=== PATIENT | female | born 1945 | race Caucasian/White ===

== ENCOUNTER 2020-07-22 15:49 | Outpatient (REF) | payer OTHER, MEDICARE, SELFPAY ==
--- NOTE | ~2020-07-22 | MM_ITS ---
EXAMINATION: MM SCREENING DIGITAL BREAST TOMOSYNTHESIS, BILATERAL CLINICAL INFORMATION: Screening. Asymptomatic. The lifetime risk of breast cancer based on the Tyrer-Cuzick Model is 5%. COMPARISON: Mammography: 06/14/2018, 06/04/2017, 05/21/2016 TECHNIQUE: Digital breast tomosynthesis is performed in both the craniocaudal and mediolateral oblique views along with computer-aided detection (CAD). Synthesized 2D images are generated from the tomosynthesis. FINDINGS: The breasts are heterogeneously dense, which may obscure small masses (ACR BI-RADS breast composition Category c). Breast tissue composition borders on average fibroglandular. Parenchymal pattern is similar to prior studies. There is no developing density or interval mass or architectural abnormality. Again, there are regional ductal secretory calcifications central right breast and other scattered benign round and some coarse calcifications as before. The axilla and skin contours are unremarkable. MM/MM tomosynthesis screening BI IMPRESSION: No significant changes from prior exams. ASSESSMENT: BI-RADS 2: Benign RECOMMENDATION: Routine annual mammography screening. This patient's information was entered into a reminder system with a target due date for their next mammogram.
== END 2020-07-22 15:50 | disposition home or self-care (01) ==
LOC: HO.MAMMO 15:49
PROVIDERS: Visit Provider Internal Medicine
DX: Z12.31 Encounter for screening mammogram for malignant neoplasm of breast (principal)
CPT/HCPCS: 77063; 77067

== ENCOUNTER → 2020-12-31 11:05 | Outpatient (BNVA) | payer OTHER, MEDICARE, SELFPAY | PROVIDERS: PCP Internal Medicine; Visit Provider Nurse Practitioner Family | DX: Z01.811 Encounter for preprocedural respiratory examination (principal); Z12.11 Encounter for screening for malignant neoplasm of colon; K59.01 Slow transit constipation; E11.9 Type 2 diabetes mellitus without complications | CPT/HCPCS: 99202 ==

== ENCOUNTER 2021-03-15 06:51 | Emergency (ER) | payer OTHER, MEDICARE, SELFPAY ==
[2021-03-15 06:59] VITALS: BP 154/66; PULSE 92; RESP 20; TEMP 36.7; O2SAT 96; BMI 21.2
[2021-03-15] MEDS: dexAMETHasone sod phosphate 10 MG/ML VIAL IVPUSH (07:11)
[2021-03-15] MEDS: Famotidine/PF 20 MG/2 ML VIAL IVPUSH (07:11)
[2021-03-15] MEDS: 0.9 % Sodium Chloride 1,000 ML 999 ML IVCONT (07:11)
[2021-03-15 07:17] VITALS: BP 156/63; PULSE 84; RESP 14; O2SAT 96
[2021-03-15 07:26] LABS: INTERNATIONAL NORM RATIO 1.1 (0.9-1.1); Prothrombin Time 12.3 SEC (9.9-13.0)
[2021-03-15 07:29] LABS: Partial Thromboplastin Time 37.5 SEC (24.1-38.0)
[2021-03-15 07:31] LABS: Basophils Absolute Auto 0.1 X10*3/uL (0.0-0.2); Basophils Percent Auto 0.5 % (0-2); Eosinophils Absolute Auto 0.4 X10*3/uL (0.0-0.4); Eosinophils Percent Auto 3.5 % (0-4); Hematocrit 41.6 % (37.0-47.0); Hemoglobin 12.7 g/dl (12.0-16.0); Imm Gran Abs Auto 0.04 X10*3/uL (0.00-0.03); Imm Gran Pct Auto 0.4 % (0.0-0.4); Lymphocytes Percent Auto 18.8 % (20-40); MANUAL DIFF FLAG SCAN; Mean Corpuscular HGB Conc 30.5 g/dl (31.0-35.0); Mean Corpuscular Hemoglobin 28.3 pg (27.0-33.0); Mean Corpuscular Volume 92.7 fL (80.0-98.0); Mean Platelet Volume 10.1 fL (9.4-12.3); Monocytes Absolute Auto 1.1 X10*3/uL (0.1-1.2); Monocytes Percent Auto 10.7 % (2-11); Neutrophils Absolute Auto 7.1 x10*3/uL (2.0-8.3); Neutrophils Percent Auto 66.1 % (45-73); PLT CLUMP 1; Red Blood Count 4.49 X10*6/uL (4.20-5.50); Red Cell Distribution Width 15.6 % (11.0-16.0); SCAN SMEAR FLAG 1
--- NOTE | 2021-03-15 07:32 | ED_ITS ---
HPI - General Adult General Chief complaint: Allergic Reaction Stated complaint: allergic reaction Time Seen by Provider: 03/15/21 06:56 Source: patient Mode of arrival: ambulatory Limitations: no limitations History of Present Illness HPI narrative: this is a 75 years old patient presented to the ED with complaining of swelling of the tongue, she states it she woke up with the tongue swelling, she takes lisinopril. She denies any skin rash wheezing or shortness of breath. Onset (ago): hour(s) (2) Radiation: non-radiation Severity: moderate Quality: constant Pain Consistency: constant Relieving factors: none Exacerbating factors: none Associated symptoms: denies other symptoms Related Data Home Medications Medication Instructions Recorded Confirmed albuterol sulfate 90 2 puff INHALATION Q6H PRN 12/31/20 03/15/21 mcg/actuation aerosol inhaler clopidogrel 75 mg tablet 75 mg PO DAILY 12/31/20 03/15/21 (Plavix) fenofibrate 160 mg tablet 160 mg PO DAILY 12/31/20 03/15/21 ferrous sulfate 325 mg (65 mg 325 mg PO DAILY 12/31/20 03/15/21 iron) tablet gabapentin 100 mg capsule 200 mg PO TID 12/31/20 03/15/21 lisinopril 20 mg tablet 20 mg PO BID 12/31/20 03/15/21 metformin 500 mg tablet 1,000 mg PO BID 12/31/20 03/15/21 omeprazole 20 mg 20 mg PO DAILY 12/31/20 03/15/21 capsule,delayed release rosuvastatin 20 mg tablet 20 mg PO DAILY 12/31/20 03/15/21 (Crestor) sitagliptin 100 mg tablet 100 mg PO DAILY 12/31/20 03/15/21 (Januvia) amlodipine 10 mg tablet 1 tab PO DAILY 03/15/21 03/15/21 clonidine HCl 0.1 mg tablet 1 tab PO BID 03/15/21 03/15/21 fluticasone fur. 100 1 puff INHALATION DAILY 03/15/21 03/15/21 mcg-umeclid 62.5 mcg-vilant 25 mcg inhalat.powder (Trelegy Ellipta) glipizide 5 mg tablet, 1 tab PO DAILY 03/15/21 03/15/21 extended release 24 hr Previous Rx's Medication Instructions Recorded prednisone 20 mg tablet 60 mg PO DAILY 3 Days #9 tab 03/15/21 Allergies Allergy/AdvReac Type Severity Reaction Status Date / Time No Known Allergies Allergy Verified 12/31/20 11:33 Review of Systems Verdana 4l Review of Systems: Yes all other systems are reviewed and Verdana 4d are negative Verdana 4l Constitutional: Verdana 4d Constitutional: Verdana 4d Verdana 4d Reports no additional constitutional complaints Verdana 4l Eyes: Verdana 4d Verdana 4d Eyes: Verdana 4d Reports no additional eye complaints Verdana 4l ENT: Verdana 4d Denies dysphagia Verdana 4d Comments: Verdana 4d Verdana 4d tongue swelling Verdana 4d Verdana 4l Cardiovascular: Verdana 4d Cardiovascular: Verdana 4d Verdana 4d Reports no additional cardiovascular complaints Verdana 4l Respiratory: Verdana 4d Verdana 4d Respiratory: Verdana 4d Reports no additional respiratory complaints Verdana 4l Gastrointestinal: Verdana 4d Gastrointestinal: Verdana 4d Verdana 4d Denies dysphagia Verdana 4l Genitourinary: Verdana 4d Verdana 4d Genitourinary: Verdana 4d Reports no additional female genitourinary complaints PMFSH Past Medical History Medical History Diabetes mellitus HTN (hypertension) Hypercholesteremia Surgical History History of esophagogastroduodenoscopy (EGD) History of lumbar laminectomy History of lumpectomy Hx of colonoscopy Family History Family History Sister Colon cancer Father Asthma Lung cancer Mother Stroke Brother Colon cancer Social History Social History Alcohol intake: never Patient Tobacco Use Status: Current everyday Tobacco user Tobacco use type: Cigarette Use of substances other than those prescribed or required for medical reasons: No Advance Directives: No Advance Directives Information Provided: Yes Physical Exam Verdana 4l Vital Signs: Verdana 4d Verdana 4d Vital Signs: Verdana 4d Verdana 4Bd Last Vital Signs Verdana 4d 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 Temp 98.0 F 03/15/21 15:11 Factory Maintenance Technician New 4d Pulse 90 03/15/21 15:11 Factory Maintenance Technician New 4d Resp 16 03/15/21 15:11 BP 155/65 H 03/15/21 15:11 Pulse Ox 95 03/15/21 15:11 BMI result Body Mass Index 21.2 Const: General: cooperative, alert and awake Orientation/consciousness: oriented to person, oriented to place, oriented to time and patient oriented x3 HENMT: Other: Examination the head eyes ears nose and throat is remarkable for swelling of the tongue Face and sinus: Yes other (tongue swelling) Neck: Neck: Yes normal visual inspection Chest: Chest palpation & inspection: normal inspection of the chest Resp: Effort & Inspection: normal respiratory effort and able to speak in complete sentences Auscultation: clear to auscultation bilaterally Cardio: Jugular venous distension: no JVD Rate: regular rate Rhythm: regular rhythm GI: Inspection: Yes normal to inspection Palpation (GI): Soft to palpation, not firm and nontender Skin: General skin exam: no rashes or lesions noted, elasticity normal and turgor normal Lesions: no lesions Rashes: no rashes Neuro: General: oriented to person, oriented to place, oriented to time and patient oriented x3 Course Reevaluation(s) Reevaluation #1: no worse Reevaluation #2: AFTER MORE THAN 4 HOUR OF OBSERVATION CLINICAL PICTURE REMAIN UNCHANGED NO WORSENING OF THE SWELLING, NO STRIDOR . AT THIS POINT I THINK IT IS VERY REASONABLE TO ASMIT THE PATIENT TO MONITORED BED Reevaluation #3: I booked the pt to tele ,Dr Ramirez went to see the pt but she refused the admission,she wants to go home,states she feels better now Additional Reevaluation(s): Doing better wants to be d/c home,refuses admission,she was told to discontinue lisinopril Medical Decision Making MDM Narrative Medical decision making narrative: briefly this is a 75 years old presented with angioedema, we going to give Decadron, Benadryl, Pepcid. I anticipate a prolonged period of observation in the emergency department and possible admission. At this time in airways patent will monitor closely Lab Data Result diagrams: 03/15/21 07:14 03/15/21 07:14 Labs: Lab Results 02/06/2903/15/21 03/15/21 Range/Units 07:14 07:14 07:14 WBC 10.7 (4.8-10.8) X10*3/uL RBC 4.49 (4.20-5.50) X10*6/uL Hgb 12.7 (12.0-16.0) g/dl Hct 41.6 (37.0-47.0) % MCV 92.7 (80.0-98.0) fL MCH 28.3 (27.0-33.0) pg MCHC 30.5 L (31.0-35.0) g/dl RDW 15.6 (11.0-16.0) % Plt Count 372 (160-400) X10*3/uL MPV 10.1 (9.4-12.3) fL Immature Gran % (Auto) 0.4 (0.0-0.4) % Neut % (Auto) 66.1 (45-73) % Lymph % (Auto) 18.8 L (20-40) % Boone % (Auto) 10.7 (2-11) % Eos % (Auto) 3.5 (0-4) % Baso % (Auto) 0.5 (0-2) % Lymph # (Auto) 2.0 (1.2-4.9) X10*3/uL Boone # (Auto) 1.1 (0.1-1.2) X10*3/uL Eos # (Auto) 0.4 (0.0-0.4) X10*3/uL Baso # (Auto) 0.1 (0.0-0.2) X10*3/uL Abs Immat Gran (auto) 0.04 H (0.00-0.03) X10*3/uL Absolute Neuts (auto) 7.1 (2.0-8.3) x10*3/uL Absolute Nucleated RBC 0.000 (0.0-0.012) X10*3/uL Nucleated RBC % (auto) 0.0 (0.0-0.2) /100WBC Smear Tech's Comments VERIFIED PT 12.3 (9.9-13.0) SEC INR 1.1 (0.9-1.1) APTT 37.5 (24.1-38.0) SEC Sodium 142 (135-145) mmol/L Potassium 4.4 (3.3-5.1) mmol/L Chloride 108 (96-108) mmol/L Carbon Dioxide 24 (22-29) mmol/L Anion Gap 14 (12-20) BUN 22 H (9-16) mg/dL Creatinine 1.09 (0.5-1.4) mg/dL Estim Creat Clear Calc 30.3 Estimated GFR 49 Random Glucose 102 (60-115) mg/dL Calcium 10.1 (8.4-10.2) mg/dL Total Bilirubin 0.5 (0.0-1.0) mg/dL AST 27 (5-31) U/L ALT 18 (0-31) U/L Alkaline Phosphatase 73 (39-117) U/L Total Protein 7.6 (6.5-8.0) g/dL Albumin 4.2 (3.5-5.0) g/dL COVID-19 (AAKASH) (Negative) COVID-19 Clin Com 03/15/21 Range/Units 13:59 WBC (4.8-10.8) X10*3/uL RBC (4.20-5.50) X10*6/uL Hgb (12.0-16.0) g/dl Hct (37.0-47.0) % MCV (80.0-98.0) fL MCH (27.0-33.0) pg MCHC (31.0-35.0) g/dl RDW (11.0-16.0) % Plt Count (160-400) X10*3/uL MPV (9.4-12.3) fL Immature Gran % (Auto) (0.0-0.4) % Neut % (Auto) (45-73) % Lymph % (Auto) (20-40) % Boone % (Auto) (2-11) % Eos % (Auto) (0-4) % Baso % (Auto) (0-2) % Lymph # (Auto) (1.2-4.9) X10*3/uL Boone # (Auto) (0.1-1.2) X10*3/uL Eos # (Auto) (0.0-0.4) X10*3/uL Baso # (Auto) (0.0-0.2) X10*3/uL Abs Immat Gran (auto) (0.00-0.03) X10*3/uL Absolute Neuts (auto) (2.0-8.3) x10*3/uL Absolute Nucleated RBC (0.0-0.012) X10*3/uL Nucleated RBC % (auto) (0.0-0.2) /100WBC Smear Tech's Comments PT (9.9-13.0) SEC INR (0.9-1.1) APTT (24.1-38.0) SEC Sodium (135-145) mmol/L Potassium (3.3-5.1) mmol/L Chloride (96-108) mmol/L Carbon Dioxide (22-29) mmol/L Anion Gap (12-20) BUN (9-16) mg/dL Creatinine (0.5-1.4) mg/dL Estim Creat Clear Calc Estimated GFR Random Glucose (60-115) mg/dL Calcium (8.4-10.2) mg/dL Total Bilirubin (0.0-1.0) mg/dL AST (5-31) U/L ALT (0-31) U/L Alkaline Phosphatase (39-117) U/L Total Protein (6.5-8.0) g/dL Albumin (3.5-5.0) g/dL COVID-19 (AAKASH) Negative (Negative) COVID-19 Clin Com See Note Critical Care Time Critical Care Time Critical Care Time: Yes Total Critical Care Time: 60 Attestation: IV decadron/IV benadryl/possible aiway obstruction Discharge Plan Discharge Clinical Impression: Acquired angioedema Patient Disposition: Home, Self-Care Instructions: Angioedema (ED) Additional Instructions: Stop lisinopril,return if worse Prescriptions: New prednisone 20 mg tablet 60 mg PO DAILY 3 Days Qty: 9 0RF No Action clonidine HCl 0.1 mg tablet 1 tab PO BID 0RF amlodipine 10 mg tablet 1 tab PO DAILY 0RF Trelegy Ellipta 100-62.5-25 mcg blister with device 1 puff inhalation DAILY 0RF glipizide 5 mg tablet extended release 24 hr 1 tab PO DAILY 0RF omeprazole 20 mg capsule,delayed release(DR/EC) 20 mg PO DAILY 0RF lisinopril 20 mg tablet 20 mg PO BID 0RF gabapentin 100 mg capsule 200 mg PO TID 0RF albuterol sulfate 90 mcg/actuation HFA aerosol inhaler 2 puff inhalation Q6H PRN (Reason: Shortness Of Breath) 0RF clopidogrel [Plavix] 75 mg tablet 75 mg PO DAILY 0RF fenofibrate 160 mg tablet 160 mg PO DAILY 0RF rosuvastatin [Crestor] 20 mg tablet 20 mg PO DAILY 0RF ferrous sulfate 325 mg (65 mg iron) tablet 325 mg PO DAILY 0RF Januvia 100 mg tablet 100 mg PO DAILY 0RF metformin 500 mg tablet 1,000 mg PO BID 0RF Interventions: ED Discharge Assessment Last Done: 03/15/21 15:20 Print Language: Senegalese
[2021-03-15 07:34] LABS: Platelet Count 372 X10*3/uL (160-400); White Blood Count 10.7 X10*3/uL (4.8-10.8)
[2021-03-15 07:40] LABS: Alanine Aminotransferase 18 U/L (0-31); Albumin Level 4.2 g/dL (3.5-5.0); Alkaline Phosphatase 73 U/L (39-117); Anion Gap 14 (12-20); Aspartate Amino Transferase 27 U/L (5-31); Bilirubin Total 0.5 mg/dL (0.0-1.0); Blood Urea Nitrogen 22 mg/dL (9-16); Calcium 10.1 mg/dL (8.4-10.2); Carbon Dioxide 24 mmol/L (22-29); Chloride 108 mmol/L (96-108); Creatinine Clr Calc Pharmacy 30.3; Estimated Glomerular Filt Rate 49; Glucose Random 102 mg/dL (60-115); Potassium 4.4 mmol/L (3.3-5.1); Sodium 142 mmol/L (135-145); Total Protein 7.6 g/dL (6.5-8.0)
[2021-03-15 07:51] LABS: SLIDE REVIEW VERIFIED
[2021-03-15] MEDS: diphenhydrAMINE HCL 50 MG/ML VIAL 25 MG IVPUSH (08:05)
[2021-03-15 10:00] VITALS: BP 136/64; PULSE 87; RESP 15; O2SAT 94
--- NOTE | 2021-03-15 13:09 | PHA.MEDREC ---
Pharmacy Consult ? Medication Reconciliation Pharmacy has completed the medication reconciliation. Pt stated that she was prescribed HCTZ 12.5mg QD but has not started taking it yet. Tanya Hawley, JohnnieD
[2021-03-15 14:23] LABS: COVID-19 Test Negative (Negative)
[2021-03-15 15:11] VITALS: BP 155/65; PULSE 90; RESP 16; TEMP 36.7; O2SAT 95
== END 2021-03-15 15:20 | disposition home or self-care (01) ==
PROVIDERS: Emergency Provider Emergency Medicine; PCP Internal Medicine
DX: T78.3XXA Angioneurotic edema, initial encounter (principal); T46.4X5A Adverse effect of angiotensin-converting-enzyme inhibitors, initial encounter; Y92.019 Unspecified place in single-family (private) house as the place of occurrence of the external cause; Z20.822 Contact with and (suspected) exposure to COVID-19; E11.9 Type 2 diabetes mellitus without complications; I10 Essential (primary) hypertension; E78.5 Hyperlipidemia, unspecified; F17.200 Nicotine dependence, unspecified, uncomplicated; Z79.02 Long term (current) use of antithrombotics/antiplatelets
CPT/HCPCS: 36415; 80053; 85025; 85610; 85730; 87635; 96361; 96365; 96375; 99284; 99291; J1100; J1200

== ENCOUNTER → 2021-04-09 13:48 | Outpatient (BNVA) | payer OTHER, MEDICARE, SELFPAY | PROVIDERS: PCP Internal Medicine; Referring Provider Internal Medicine; Visit Provider Nurse Practitioner Family | DX: Z12.11 Encounter for screening for malignant neoplasm of colon (principal); K59.01 Slow transit constipation | CPT/HCPCS: 99212 ==

== ENCOUNTER → 2021-04-14 15:09 | Outpatient (BNVA) | payer OTHER, MEDICARE, SELFPAY | PROVIDERS: PCP Internal Medicine; Referring Provider Internal Medicine; Visit Provider Internal Medicine Cardiovascular Disease | DX: J44.9 Chronic obstructive pulmonary disease, unspecified (principal); R06.00 Dyspnea, unspecified | CPT/HCPCS: 93005; 99202 ==

== ENCOUNTER → 2021-04-25 11:12 | Outpatient (REF) | payer MEDICARE, SELFPAY ==
--- NOTE | 2021-04-25 11:16 | CA_ITS ---
Transthoracic Echocardiogram Patient (Last, First, Middle): Kae Vizcarra, Gender: Female Date of : 1945 Age: 75 Procedure Date: 04/25/2021 Procedure Type: Transthoracic Echocardiogram Location: OP Height: 149.86 cm Weight: 45.36 kg BSA: 1.37 m2 Heart Rate: bpm BP: 140 / 80 mmHg Roll Grinder: KEVEN Kennedy MD: Vikram Murphy MD Symptoms: R06.00 - Dyspnea, unspecified Study Quality: Fair ECG Rhythm: Sinus Conclusions: - The left ventricular systolic function is normal. The calculated ejection fraction is 59% by biplane method. - There is mild calcification of the aortic valve. - There is moderate mitral annular calcification. Findings Left Ventricle Normal left ventricular cavity size. There is mildly increased left ventricular wall thickness. The left ventricular systolic function is normal. The calculated ejection fraction is 59% by biplane method. There is no evidence of regional wall motion abnormalities. E/E prime ratio is >15, consistent with elevated filling pressures. Evidence suggests grade I (mild) diastolic dysfunction. Right Ventricle Normal right ventricular cavity size and systolic function. Atria Both atria are normal in size. Aortic Valve There is a normal trileaflet aortic valve. There is mild calcification of the aortic valve. There is no aortic valve stenosis. There is no aortic valve regurgitation. Mitral Valve There is moderate mitral annular calcification. There is trace mitral valve regurgitation. There is no mitral valve stenosis. Pulmonic Valve The pulmonic valve was not well visualized. Tricuspid Valve Normal tricuspid valve structure. There is trace tricuspid valve regurgitation. The pulmonary artery systolic pressure is normal. Great Vessels The aortic annulus, sinuses of valsalva, and asc aorta are normal in size. Venous The inferior vena cava is normal in size and collapses greater than 50% with inspiration. Pericardium/Pleural There is a trivial pericardial effusion. Prior Study Comparison No prior study available for comparison. Measurements 2D Linear Measurements IVSd: 1.16 0.6-0.9/0.6-1.0 cm LVIDd: 3.76 3.9-5.3/4.2-5.9 cm LVIDd Index: 2.74 2.4-3.2/2.2-3.1 cm/m2 LVIDs: 2.69 2.0-3.6 cm LVPWd: 1.14 0.7-1.1 cm LA Diam: 3.20 2.7-3.8/3.0-4.0 cm LAIDs Index: 2.34 1.5-2.3 cm/m2 LV Mass: 176.16 67-162/88-224 g LV Mass Index: 128.59 43-95/49-115 g/m2 LVOT Diam: 2.00 3.0+(-)1.3 cm 2D Systolic Function EF 4C: 55.90 >55% EF 2C: 62.10 >55% EF BiP: 58.80 >55% Mitral Valve MV Pk E: 0.86 MV PK A: 1.41 MV Decel Time: 214.00 E/A: 0.60 E'Lateral: 2.83 E'Medial: 3.37 E/E' Med: 25.40 E/E' Lat: 30.30 PHT: 63.00 MVA PHT: 3.49 Decel Mchenry: 4.01 Aortic Valve AoV Pk Ramírez: 1.49 AoV Mn Ramírez: 1.00 AoV VTI: 0.23 AoV Pk Grad: 9.00 Aov Mn Grad: 5.00 RAMEZ Cont.VTI: 2.14 LVOT LVOT Pk Ramírez: 1.21 LVOT Mn Ramírez: 0.66 LVOT VTI: 0.16 LVOT Pk Grad: 6.00 LVOT Mn Grad: 2.00 LVOT Diam: 2.00 LVOT Area: 3.14 Diastolic Function MV Pk E: 0.86 MV Pk A: 1.41 E/A: 0.60 E'Medial: 3.37 E/E' Med: 25.40 E' Laterial: 2.83 E/E' Lat: 30.30 Right Ventricle TAPSE (mm): 19.30 TVS' Ramírez: 14.00 Tricuspid Valve TR Pk Ramírez: 2.01 TR Pk Grad: 16.00 RA Press: 3.00 RVSP: 19.00 Great Vessels Aorta Sinus of Valsalva: 2.96 2.0-3.5 cm Ao Asc: 2.90 2.1-3.4 cm Ao Arch: 2.50 Updated in Other Vendor System with Status of Final Osvaldo Suazo MD electronically signed on 04/26/2021 12:58:35 PM with status of Final
== END ==
LOC: HO.CARD 11:12
PROVIDERS: Visit Provider Internal Medicine Cardiovascular Disease
DX: R06.00 Dyspnea, unspecified (principal)
CPT/HCPCS: 93306

== ENCOUNTER 2021-07-07 08:20 | Observation (INO) | payer MEDICARE, OTHER, SELFPAY ==
--- NOTE | ~2021-07-07 | CT_ITS ---
EXAMINATION: CT HEAD WITHOUT CONTRAST CLINICAL INFORMATION: Weakness. COMPARISON: None TECHNIQUE: Contiguous axial imaging was performed from the skull base to vertex without intravenous administration of contrast. This CT examination was performed using dose optimization techniques as appropriate, variously including the following: *Automated exposure control *Adjustment of mA and/or kV according to patient size (this includes techniques or standardized protocols for targeted exams where dose is matched to indication/reason for exam; i.e. extremities or head) *Use of iterative reconstruction technique DLP: 800 mGy-cm FINDINGS: The ventricles and sulci are enlarged consistent with atrophy. No visualized masses or midline shift are seen. There is no intra-axial or extra-axial hemorrhage. There are no fluid collections. Decreased attenuation is seen in the periventricular white matter compatible with chronic small vessel ischemic disease. The calvin-white discrimination is preserved. The included paranasal sinuses and mastoid air cells are well aerated. The calvarium is intact. CT/CT head/brain wo con IMPRESSION: No intracranial hemorrhage or mass effect. Generalized atrophy and chronic small vessel white matter ischemic changes.
--- NOTE | ~2021-07-07 | CT_ITS ---
EXAMINATION: CT CHEST WITHOUT CONTRAST CLINICAL INFORMATION: Weakness. Abnormal chest radiograph. COMPARISON: Chest radiograph done earlier the same day. TECHNIQUE: Multidetector volumetric CT imaging of the chest was done. Axial MIP volume rendering provided. Sagittal and coronal reformatted images were obtained. This CT examination was performed using dose optimization techniques as appropriate, variously including the following: *Automated exposure control *Adjustment of mA and/or kV according to patient size (this includes techniques or standardized protocols for targeted exams where dose is matched to indication/reason for exam; i.e. extremities or head) *Use of iterative reconstruction technique DLP: 800 mGy-cm FINDINGS: TAILER OUT: Redemonstration of left chest wall opacification and leftward mediastinal shift. LUNGS/PLEURA: [id number] left-sided pleural effusion with complete collapse of the left lung. Tiny, insignificant foci of aeration posteriorly within the left lung. There is abrupt cutoff of the left mainstem bronchus which could indicate an obstructing lesion. Evaluation is somewhat limited without IV contrast. Bronchoscopy could help further evaluate in the appropriate clinical setting. Trace right basilar pleural thickening. No airspace consolidation. No right-sided pleural effusion or pneumothorax. Mild right-sided emphysematous change. No pneumothorax. MEDIASTINUM: Leftward mediastinal shift is redemonstrated. Mild cardiomegaly. Trace pericardial effusion. No thoracic aortic dilatation. Scattered atherosclerotic calcifications. No significant superior mediastinal or hilar lymphadenopathy. AXILLA: No lymphadenopathy. UPPER ABDOMEN: Simple left upper pole renal cyst. Findings are not clinically significant, and followup imaging is recommended. Partially visualized cholelithiasis. OSSEOUS STRUCTURES: No acute osseous abnormality. CT/CT chest wo con IMPRESSION: 1. [id number] left-sided pleural effusion with complete collapse of the left lung. Abrupt cutoff of the left mainstem bronchus which could indicate an obstructing lesion. Evaluation is somewhat limited without contrast, and bronchoscopy could help further evaluate in the appropriate clinical setting. 2. Trace right-sided basilar pleural thickening. No right-sided airspace consolidation. Mild emphysematous changes. 3. Leftward mediastinal shift with mild cardiomegaly and a trace pericardial effusion. Fleischner guidelines were followed.
--- NOTE | ~2021-07-07 | XR_ITS ---
EXAMINATION: XR CHEST CLINICAL INFORMATION: Weakness. COMPARISON: None TECHNIQUE: Frontal view of the chest was obtained. FINDINGS: Complete opacification of the left lung with leftward mediastinal shift, possibly indicating postobstructive atelectasis with volume loss. The right lung is clear. No right-sided pleural effusion or pneumothorax. XR/XR chest 1V IMPRESSION: Complete opacification of the left lung with leftward mediastinal shift which could indicate postobstructive atelectasis and volume loss.
--- NOTE | 2021-07-07 08:23 | ECG_ITS ---
Test Reason : ABNORMAL LABS Blood Pressure : / mmHG Vent. Rate : 084 BPM Atrial Rate : 084 BPM P-R Int : 156 ms QRS Dur : 088 ms QT Int : 380 ms P-R-T Axes : 082 073 110 degrees QTc Int : 449 ms Normal sinus rhythm Minimal voltage criteria for LVH, may be normal variant ( Sokolow-Mauro ) Septal infarct (cited on or before 20-JAN-2005) T wave abnormality, consider anterior ischemia Abnormal ECG When compared with ECG of 26-JAN-2005 07:49, RSR' pattern in V1 is no longer Present T wave inversion now evident in Anterior leads Referred By: Ifeoma Hinds Electronically Signed By:GLADYS WHITFIELD MD
[2021-07-07 08:30] VITALS: BP 150/108; BP 179/78; PULSE 80; PULSE 89; RESP 18; TEMP 36.8; O2SAT 95; BMI 14.1
--- NOTE | 2021-07-07 08:34 | ED_ITS ---
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 who recently was seen by Cardiology and had an echocardiogram on 04/25/2021 which revealed an ejection fracture of 59% with mild increased left ventricular wall thickness, normal right ventricle, normal atria, mild calcification of aortic valve otherwise no other abnormalities, mitral valve calcification and regurge, and tricuspid valve regurg otherwise no other abnormalities who was recently diagnosed with metastatic lung cancer approximately 1 month ago not on chemo or radiation due to stage IV who son told EMS that she was diagnosed with having a silent AK last month by cardiology p resenting to the ED via EMS after her son found her weak gurgling her speech therefore he called EMS and when EMS arrived they realize her blood glucose level was 40 and they started an IV line and placed her on D10 and her blood sugar on arrival at this time is 202. On arrival patient is alert and oriented x3. Moving all extremities. No focal neuro deficits are noted. Reports that she ate dinner last night and ate some ice cream right after dinner. She reports that she did not take any medications this morning. She reports her blood sugar has never gone low like this before. She denies any complaints or concerns at this time. She reports she feels completely normal at this time. 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 per EMS/family) Duration: now resolved Location: generalized Migration: none Relieving factors: none Exacerbating factors: none Associated symptoms: denies other symptoms Related Data Home Medications Medication Instructions Recorded Confirmed albuterol sulfate 90 mcg/actuation 2 puff INHALATION Q6H PRN 12/31/20 07/07/21 aerosol inhaler clopidogrel 75 mg tablet (Plavix) 75 mg PO DAILY 12/31/20 07/07/21 fenofibrate 160 mg tablet 160 mg PO DAILY 12/31/20 07/07/21 ferrous sulfate 325 mg (65 mg 325 mg PO DAILY 12/31/20 07/07/21 iron) tablet gabapentin 100 mg capsule 200 mg PO BID 12/31/20 07/07/21 metformin 500 mg tablet 1,000 mg PO BID 12/31/20 07/07/21 omeprazole 20 mg capsule,delayed 20 mg PO DAILY 12/31/20 07/07/21 release rosuvastatin 20 mg tablet (Crestor) 20 mg PO DAILY 12/31/20 07/07/21 sitagliptin 100 mg tablet (Januvia) 100 mg PO DAILY 12/31/20 07/07/21 clonidine HCl 0.1 mg tablet 1 tab PO BID 03/15/21 07/07/21 fluticasone fur. 100 mcg-umeclid 1 puff INHALATION DAILY 03/15/21 07/07/21 62.5 mcg-vilant 25 mcg inhalat.powder (Trelegy Ellipta) glipizide 5 mg tablet, extended 1 tab PO DAILY 03/15/21 07/07/21 release 24 hr epinephrine 0.3 mg/0.3 mL 0.3 mg IM Q5M PRN 04/09/21 07/07/21 injection, auto-injector amlodipine 10 mg tablet 10 mg PO DAILY 04/14/21 07/07/21 Allergies Allergy/AdvReac Type Severity Reaction Status Date / Time lisinopril Allergy Severe TONGUE Verified 04/14/21 15:18 SWELLING Review of Systems Review of Systems: Constitutional : No Fever, No Chills, No Night Sweats, No Fatigue, No Malaise ENT/Mouth : No Ear Pain, No Nasal Congestion, No Sinus Pain, No sore throat, No Rhinorrhea Eyes: No Eye Pain, No Swelling, No Redness, No Foreign Body, No Discharge, No Vision Changes Cardiovascular : No Chest Pain, No SOB, No Dyspnea on Exertion, No Orthopnea, No Palpitations Respiratory : No Cough, No Sputum, No Wheezing, No Dyspnea Gastrointestinal : No Nausea, No Vomiting, No Diarrhea, No Constipation, No abdominal Pain, No Hematochezia, No Melena Genitourinary : No Dysuria, No Urinary Frequency, No Urinary Incontinence, No Urgency, No Flank Pain Musculoskeletal : No joint pain, No Myalgias Skin : No lacerations Neuro : + general weakness which has now resolved, No Focal weakness, No Numbness, No Paresthesias, No Loss of Consciousness, No Dizziness, No Headache Yes all other systems are reviewed and are negative [facility] Past Medical History Attestation statement: The following information was validated with the patient. Medical History Diabetes mellitus HTN (hypertension) Hypercholesteremia Squamous cell carcinoma in situ of skin of forearm Surgical History History of esophagogastroduodenoscopy (EGD) History of lumbar laminectomy History of lumpectomy Hx of colonoscopy Family History Family History Sister Colon cancer Father Asthma Lung cancer Mother Stroke Brother Colon cancer Social History Social History Alcohol intake: never Patient Tobacco Use Status: Current everyday Tobacco user Tobacco use type: Cigarette Advance Directives: No Advance Directives Information Provided: No Physical Exam Vital Signs: Vital Signs: Last Vital Signs Temp 97.7 F 07/07/21 14:38 Pulse 79 07/07/21 14:38 Resp 19 07/07/21 14:38 BP 156/71 H 07/07/21 14:38 Pulse Ox 95 07/07/21 14:38 BMI result Body Mass Index 14.1 Vital signs have been reviewed as normal and appeared to be correct. Blood pressure 150/108. Heart rate normal. Respiration rate normal. Temperature normal. Oxygen saturation normal. Appearance: Alert. Oriented X3. No acute distress. Head: Normal external exam. Normocephalic. Atraumatic. Able to rotate head bilaterally. Eyes: PERRLA. EOMI. No nystagmus noted. Conjunctiva and sclera normal. Eyelids normal. Corneal reflex normal. ENT: EAC normal. TM's Normal. Hearing normal. Pharynx normal. Uvula midline. tongue midline. Moist mucous membranes. No trismus noted. No drooling noted. No muffled voice noted. No nystagmus noted. Neck: Normal inspection. Neck supple. FROM. No adenopathy. Trachea midline. Thyroid Normal. No meningeal signs. No neck mass noted. CVS: Normal heart rate and rhythm. Heart sound normal. No murmurs noted. Pulses normal throughout. Respiratory: No respiratory distress. Painless inspiration. Breath sounds normal. No wheezes/rales/rhonchi noted. Chest nontender. No accessory muscle usage noted or decreased air movement noted. Abdomen: Soft and nontender. Bowel sounds normal in all 4 quadrants. No distention noted. No organomegaly noted. No visible injury noted. Back: No CVA tenderness. Full range of motion noted. Skin: Skin warm and dry. Normal skin color. Normal skin turgor. No rashes/lesions/lacerations noted. Extremities: No lower extremity edema. Extremities exhibit normal range of motion. Extremities nontender. Able to shrug shoulders bilaterally and keep up against resistance. Neuro: Oriented X 3. No motor deficit. No sensory deficit. Reflexes normal. Moving all extremities. No focal motor deficits. Cranial nerves II-XI intact bilaterally. Facial strength normal. Normal cognition. Speech normal. Gait normal. Strength 5/5 throughout. No pronator drift. No tremor noted. No fasciculations noted. No rigidity noted. Muscle tone normal throughout. No asterixis noted. [id number] test normal. Heel to acevedo test normal. Tandem gait normal. Does not sway with eyes open. Romberg test negative. Rapid alternating movement upper extremity normal. Rapid alternating movement lower extremity normal. Hand drop from overhead Misses face. NIHSS score 0. Vascular: +2 distal radial pulses bilaterally,+ distal pedal pulses bilaterally. No cyanosis noted to upper lower extremities. Normal capillary refill noted to upper and lower extremity. 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 who recently was seen by Cardiology and had an echocardiogram on 04/25/2021 which revealed an ejection fracture of 59% with mild increased left ventricular wall thickness, normal right ventricle, normal atria, mild calcification of aortic valve otherwise no other abnormalities, mitral valve calcification and regurge, and tricuspid valve regurg otherwise no other abnormalities, who was recently diagnosed with metastatic lung cancer approximately 1 month ago not on chemo or radiation due to stage IV although son told EMS that patient was diagnosed with having a silent AK last month by Cardiology presenting to the ED via EMS after her son found her weak gurgling her speech therefore he called EMS and when EMS arrived they realize her blood glucose level was 40 and they started an IV line and placed her on D10 and her blood sugar on arrival at this time is 202. On arrival patient is alert and oriented x3. Moving all extremities. No focal neuro deficits are noted. Reports that she ate dinner last night and ate some ice cream right after dinner. She reports that she did not take any medications this morning. She reports her blood sugar has never gone low like this before. She denies any complaints or concerns at this time. She reports she feels completely normal at this time. On exam patient is alert oriented x3. Not in any acute distress. No focal neuro deficits are noted. NIH SS score 0. Patient is not a candidate for tPA as she has non disabling symptoms and her last known well time was around 22:00 last night per family/EMS report from the family. Lungs clear to auscultation. CV RRR. Abdomen is soft and nontender. No lower extremity edema or calf ten derness noted. No signs of trauma noted. Plan: Will obtain labs, EKG, chest x-ray, UA and re-evaluate. Reevaluation(s) Reevaluation #1: - labs reviewed [place] an [place] [address]. - H&H of 9.7/31.2 this is new when compared to prior in March of 2021 her H&H was 12.7/41.6. - potassium 2.9. - alkaline phosphate 125. - total CPK 18 - troponin 28. - total protein 6.4. - albumin 2.9. - patient negative for COVID. - chest x-ray revealed complete ossification of the left long with leftward m ediastinal shift which could indicate postobstructive atelectasis and Volume loss otherwise no other acute processes - EKG is normal sinus rhythm with ventricular rate of 84 with T-wave inversions in V2-V4 otherwise no other acute ischemic change are noted. She had an EKG on 04/14/2021 where she did not have T-wave inversions at that time. - CT scan of brain pending at this time. We also did a CT scan of chest without contrast to evaluate the patient's abnormal chest x-ray will re-evaluate. Time: 09:53 Reevaluation #2: - patient's repeat troponin 27.9. - CT scan of brain without contrast within normal limits. - CT scan of chest revealed small to moderate left-sided pleural effusion with complete collapse of the left long and possible obstructing lesion due to abrupt cutoff of the left mainstem bronchis. They recommended a bronchoscope - although after discussing with the son at bedside and the patient who is alert and oriented x3. At this time they report that they have a PCP appointment/oncologist appointment tomorrow and that they had already seen Dr. Marcus at [facility] the thoracic surgeon and at that point did not recommend a bronchoscope and the patient does not want to go under anesthesia a nd have surgery she would rather go home at this time she does not want to be admitted she does not want to go to [facility] or short-term rehab she wants to just go home and see her PCP tomorrow and she will most likely go on hospice per the patient her son at bedside. Will also give p.o. potassium instruct patient to have repeat blood work done tomorrow especially potassium when she goes to her PCP. Patient was son at bedside understand agree this plan. Time: 12:46 Reevaluation #3: - I went into the room to tell the patient that we were going to recheck a blood sugar and I wanted a urine before discharge and she noted to be weak gargling her speech we checked the point of care and her blood sugar was 10 we gave her 2 amps of dextrose and placed her on D5 half-normal saline. - therefore at this time patient will have to be admitted this is most likely related to her glipizide patient and son updated at this time. Time: 13:06 [facility] - Weakness Medical Records Attestation: I reviewed the patient's medical records. Lab Data Attestation: I reviewed the patient's lab results. Result diagrams: 07/07/21 08:37 07/07/21 08:37 Labs: Lab Results 07/07/21 07/07/21 07/07/21 Range/Units 08:37 08:37 08:37 WBC 14.5 H (4.8-10.8) X10*3/uL RBC 3.64 L (4.20-5.50) X10*6/uL Hgb 9.7 L D (12.0-16.0) g/dl Hct 31.2 L D (37.0-47.0) % MCV 85.7 (80.0-98.0) fL MCH 26.6 L (27.0-33.0) pg MCHC 31.1 (31.0-35.0) g/dl RDW 16.9 H (11.0-16.0) % Plt Count 448 H (160-400) X10*3/uL MPV 9.4 (9.4-12.3) fL Immature Gran % (Auto) 0.7 H (0.0-0.4) % Neut % (Auto) 85.4 H (45-73) % Lymph % (Auto) 4.4 L (20-40) % Maverick % (Auto) 8.1 (2-11) % Eos % (Auto) 1.3 (0-4) % Baso % (Auto) 0.1 (0-2) % Lymph # (Auto) 0.6 L (1.2-4.9) X10*3/uL Maverick # (Auto) 1.2 (0.1-1.2) X10*3/uL Eos # (Auto) 0.2 (0.0-0.4) X10*3/uL Baso # (Auto) 0.0 (0.0-0.2) X10*3/uL Abs Immat Gran (auto) 0.10 H (0.00-0.03) X10*3/uL Absolute Neuts (auto) 12.4 H (2.0-8.3) x10*3/uL Absolute Nucleated RBC 0.000 (0.0-0.012) X10*3/uL Nucleated RBC % (auto) 0.0 (0.0-0.2) /100WBC PT 14.7 H (9.9-13.0) SEC INR 1.3 H (0.9-1.1) Sodium 139 (135-145) mmol/L Potassium 2.9 L D (3.3-5.1) mmol/L Chloride 103 (96-108) mmol/L Carbon Dioxide 24 (22-29) mmol/L Anion Gap 15 (12-20) BUN 11 (9-16) mg/dL Creatinine 0.66 (0.5-1.4) mg/dL Estim Creat Clear Calc 40.0 Estimated GFR > 60 POC Glucose (60-115) mg/dL Random Glucose 106 (60-115) mg/dL Calcium 9.7 (8.4-10.2) mg/dL Magnesium 1.7 (1.6-2.6) mg/dL Total Bilirubin 0.3 (0.0-1.0) mg/dL AST 29 (5-31) U/L ALT 19 (0-31) U/L Alkaline Phosphatase 125 H D (39-117) U/L Total Creatine Kinase 18 L (26-140) U/L Troponin I High Sens (<3.5-17.0) ng/L Total Protein 6.4 L (6.5-8.0) g/dL Albumin 2.9 L D (3.5-5.0) g/dL COVID-19 (AAKASH) (Negative) COVID-19 Clin Com 07/07/21 07/07/21 07/07/21 Range/Units 08:38 08:38 11:47 WBC (4.8-10.8) X10*3/uL RBC (4.20-5.50) X10*6/uL Hgb (12.0-16.0) g/dl Hct (37.0-47.0) % MCV (80.0-98.0) fL MCH (27.0-33.0) pg MCHC (31.0-35.0) g/dl RDW (11.0-16.0) % Plt Count (160-400) X10*3/uL MPV (9.4-12.3) fL Immature Gran % (Auto) (0.0-0.4) % Neut % (Auto) (45-73) % Lymph % (Auto) (20-40) % Maverick % (Auto) (2-11) % Eos % (Auto) (0-4) % Baso % (Auto) (0-2) % Lymph # (Auto) (1.2-4.9) X10*3/uL Maverick # (Auto) (0.1-1.2) X10*3/uL Eos # (Auto) (0.0-0.4) X10*3/uL Baso # (Auto) (0.0-0.2) X10*3/uL Abs Immat Gran (auto) (0.00-0.03) X10*3/uL Absolute Neuts (auto) (2.0-8.3) x10*3/uL Absolute Nucleated RBC (0.0-0.012) X10*3/uL Nucleated RBC % (auto) (0.0-0.2) /100WBC PT (9.9-13.0) SEC INR (0.9-1.1) Sodium (135-145) mmol/L Potassium (3.3-5.1) mmol/L Chloride (96-108) mmol/L Carbon Dioxide (22-29) mmol/L Anion Gap (12-20) BUN (9-16) mg/dL Creatinine (0.5-1.4) mg/dL Estim Creat Clear Calc Estimated GFR POC Glucose (60-115) mg/dL Random Glucose (60-115) mg/dL Calcium (8.4-10.2) mg/dL Magnesium (1.6-2.6) mg/dL Total Bilirubin (0.0-1.0) mg/dL AST (5-31) U/L ALT (0-31) U/L Alkaline Phosphatase (39-117) U/L Total Creatine Kinase (26-140) U/L Troponin I High Sens 28.0 H 27.9 H (<3.5-17.0) ng/L Total Protein (6.5-8.0) g/dL Albumin (3.5-5.0) g/dL COVID-19 (AAKASH) Negative (Negative) COVID-19 Clin Com See Note 07/07/21 07/07/21 07/07/21 Range/Units 12:56 13:16 14:34 WBC (4.8-10.8) X10*3/uL RBC (4.20-5.50) X10*6/uL Hgb (12.0-16.0) g/dl Hct (37.0-47.0) % MCV (80.0-98.0) fL MCH (27.0-33.0) pg MCHC (31.0-35.0) g/dl RDW (11.0-16.0) % Plt Count (160-400) X10*3/uL MPV (9.4-12.3) fL Immature Gran % (Auto) (0.0-0.4) % Neut % (Auto) (45-73) % Lymph % (Auto) (20-40) % Maverick % (Auto) (2-11) % Eos % (Auto) (0-4) % Baso % (Auto) (0-2) % Lymph # (Auto) (1.2-4.9) X10*3/uL Maverick # (Auto) (0.1-1.2) X10*3/uL Eos # (Auto) (0.0-0.4) X10*3/uL Baso # (Auto) (0.0-0.2) X10*3/uL Abs Immat Gran (auto) (0.00-0.03) X10*3/uL Absolute Neuts (auto) (2.0-8.3) x10*3/uL Absolute Nucleated RBC (0.0-0.012) X10*3/uL Nucleated RBC % (auto) (0.0-0.2) /100WBC PT (9.9-13.0) SEC INR (0.9-1.1) Sodium (135-145) mmol/L Potassium (3.3-5.1) mmol/L Chloride (96-108) mmol/L Carbon Dioxide (22-29) mmol/L Anion Gap (12-20) BUN (9-16) mg/dL Creatinine (0.5-1.4) mg/dL Estim Creat Clear Calc Estimated GFR POC Glucose 10 L* 392 H* 242 H (60-115) mg/dL Random Glucose (60-115) mg/dL Calcium (8.4-10.2) mg/dL Magnesium (1.6-2.6) mg/dL Total Bilirubin (0.0-1.0) mg/dL AST (5-31) U/L ALT (0-31) U/L Alkaline Phosphatase (39-117) U/L Total Creatine Kinase (26-140) U/L Troponin I High Sens (<3.5-17.0) ng/L Total Protein (6.5-8.0) g/dL Albumin (3.5-5.0) g/dL COVID-19 (AAKASH) (Negative) COVID-19 Clin Com Imaging Data Chest x-ray: Attestation: I personally reviewed and interpreted this imaging study as follows: Radiologist's impression: FINDINGS: Complete opacification of the left lung with leftward mediastinal shift, possibly indicating postobstructive atelectasis with volume loss. The right lung is clear. No right-sided pleural effusion or pneumothorax. XR/XR chest 1V IMPRESSION: Complete opacification of the left lung with leftward mediastinal shift which could indicate postobstructive atelectasis and volume loss. CT scan of chest without contrast: Attestation: I personally reviewed and interpreted this imaging study as follows: Radiologist's impression: FINDINGS: DIRECTOR CLIENT: Redemonstration of left chest wall opacification and leftward mediastinal shift. LUNGS/PLEURA: [id number] left-sided pleural effusion with complete collapse of the left lung. Tiny, insignificant foci of aeration posteriorly within the left lung. There is abrupt cutoff of the left mainstem bronchus which could indicate an obstructing lesion. Evaluation is somewhat limited without IV contrast. Bronchoscopy could help further evaluate in the appropriate clinical setting. Trace right basilar pleural thickening. No airspace consolidation. No right-sided pleural effusion or pneumothorax. Mild right-sided emphysematous change. No pneumothorax.? MEDIASTINUM: Leftward mediastinal shift is redemonstrated. Mild cardiomegaly. Trace pericardial effusion. No thoracic aortic dilatation. Scattered atherosclerotic calcifications. No significant superior mediastinal or hilar lymphadenopathy.? AXILLA: No lymphadenopathy.? UPPER ABDOMEN: Simple left upper pole renal cyst. Findings are not clinically significant, and followup imaging is recommended. Partially visualized cholelithiasis.? OSSEOUS STRUCTURES: No acute osseous abnormality.? CT/CT chest wo con IMPRESSION: 1. [id number] left-sided pleural effusion with complete collapse of the left lung. Abrupt cutoff of the left mainstem bronchus which could indicate an obstructing lesion. Evaluation is somewhat limited without contrast, and bronchoscopy could help further evaluate in the appropriate clinical setting. ? 2. Trace right-sided basilar pleural thickening. No right-sided airspace consolidation. Mild emphysematous changes. ? 3. Leftward mediastinal shift with mild cardiomegaly and a trace pericardial effusion.? ? Fleischner guidelines were followed. CT scan of brain without contrast: Attestation: I personally reviewed and interpreted this imaging study as follows: Radiologist's impression: FINDINGS: The ventricles and sulci are enlarged consistent with atrophy. No visualized masses or midline shift are seen. There is no intra-axial or extra-axial hemorrhage. There are no fluid collections. Decreased attenuation is seen in the periventricular white matter compatible with chronic small vessel ischemic disease. The calvin-white discrimination is preserved. ? The included paranasal sinuses and mastoid air cells are well aerated. The calvarium is intact. CT/CT head/brain wo con IMPRESSION: No intracranial hemorrhage or mass effect. Generalized atrophy and chronic small vessel white matter ischemic changes. ECG Data Attestation: I personally reviewed and interpreted this ECG as follows: ECG interpretation date: 07/07/21 ECG interpretation time: 08:50 Interpretation: - EKG is normal sinus rhythm with ventricular rate of 84 with T-wave inversions in V2-V4 otherwise no other acute ischemic change are noted. She had an EKG on 04/14/2021 where she did not have T-wave inversions at that time. Critical Care Time Critical Care Time Critical Care Time: Yes Total Critical Care Time: 60 Attestation: I personally attest to this time spent taking care of the patient Discharge Plan Discharge Clinical Impression: Hypoglycemia, Anemia, Acute hypokalemia, Elevated troponin, Pleural effusion on left, Collapse of left lung, Pericardial effusion Patient Disposition: Admitted As Inpatient Print Language: Uzbek
[2021-07-07 08:42] LABS: MANUAL DIFF FLAG NO
[2021-07-07 08:50] LABS: Basophils Percent Auto 0.1 % (0-2); Eosinophils Absolute Auto 0.2 X10*3/uL (0.0-0.4); Eosinophils Percent Auto 1.3 % (0-4); Hematocrit 31.2 % (37.0-47.0); Hemoglobin 9.7 g/dl (12.0-16.0); Imm Gran Pct Auto 0.7 % (0.0-0.4); Lymphocytes Absolute Auto 0.6 X10*3/uL (1.2-4.9); Lymphocytes Percent Auto 4.4 % (20-40); Mean Corpuscular HGB Conc 31.1 g/dl (31.0-35.0); Mean Corpuscular Hemoglobin 26.6 pg (27.0-33.0); Mean Corpuscular Volume 85.7 fL (80.0-98.0); Mean Platelet Volume 9.4 fL (9.4-12.3); Monocytes Absolute Auto 1.2 X10*3/uL (0.1-1.2); Monocytes Percent Auto 8.1 % (2-11); Neutrophils Absolute Auto 12.4 x10*3/uL (2.0-8.3); Neutrophils Percent Auto 85.4 % (45-73); Platelet Count 448 X10*3/uL (160-400); Red Blood Count 3.64 X10*6/uL (4.20-5.50); Red Cell Distribution Width 16.9 % (11.0-16.0); White Blood Count 14.5 X10*3/uL (4.8-10.8)
[2021-07-07 08:51] LABS: INTERNATIONAL NORM RATIO 1.3 (0.9-1.1); Prothrombin Time 14.7 SEC (9.9-13.0)
[2021-07-07 09:04] LABS: COVID-19 Test Negative (Negative); IDNOW Serial# 16C4AD1C
[2021-07-07 09:21] LABS: Alanine Aminotransferase 19 U/L (0-31); Albumin Level 2.9 g/dL (3.5-5.0); Alkaline Phosphatase 125 U/L (39-117); Anion Gap 15 (12-20); Aspartate Amino Transferase 29 U/L (5-31); Bilirubin Total 0.3 mg/dL (0.0-1.0); Blood Urea Nitrogen 11 mg/dL (9-16); Calcium 9.7 mg/dL (8.4-10.2); Carbon Dioxide 24 mmol/L (22-29); Chloride 103 mmol/L (96-108); Estimated Glomerular Filt Rate > 60; Glucose Random 106 mg/dL (60-115); Magnesium 1.7 mg/dL (1.6-2.6); Potassium 2.9 mmol/L (3.3-5.1); Sodium 139 mmol/L (135-145); Total Protein 6.4 g/dL (6.5-8.0)
[2021-07-07] MEDS: Potassium Chloride/H20 10 MEQ/100 ML PIGGYBACK 100 MEQ IV ×2 (10:02→11:23)
--- NOTE | 2021-07-07 12:11 | PC.NURSE ---
On-call pulmonology service called at 1210
[2021-07-07 12:18] LABS: Troponin-I High Sensitivity 27.9 ng/L (<3.5-17.0)
--- NOTE | 2021-07-07 12:30 | PC.NURSE ---
Attempt to gain acccess to medical records from [facility] oncology with consent from patient. Health information mgt team unable to access oncology records and the oncology department is closed at this time for the holiday. PA aware of attempt made.
[2021-07-07] MEDS: Dextrose 50 % 25 GM/50 ML SYRINGE IVPUSH ×2 (13:05)
[2021-07-07] MEDS: Dextrose 5 % and 0.45 % NaCl 1,000 ML 125 ML IVCONT (13:08)
[2021-07-07 13:21] LABS: Glucose, Whole Blood 392 mg/dL (60-115)
[2021-07-07 13:21] LABS: Glucose, Whole Blood 10 mg/dL (60-115)
--- NOTE | 2021-07-07 13:46 | PC.NURSE ---
late entry: pt reeval by provider, noticed to not be responding with baseline mentation, poc glucose checked and result was 10. pt given two amps of dex50% ivp and started on d5 half normal saline at 125ml/hr. pt now alert and oriented, denies any pain, sob or dizziness. pt son alerted to event by provider, plan for inpt admission att. poc glucose recheck 392.
--- NOTE | 2021-07-07 14:14 | PHA.MEDREC ---
Pharmacy Consult ? Medication Reconciliation Pharmacy has completed the medication reconciliation.
[2021-07-07 14:38] VITALS: BP 156/71; PULSE 79; RESP 19; TEMP 36.5; O2SAT 95
[2021-07-07 14:43] LABS: Glucose, Whole Blood 242 mg/dL (60-115)
--- NOTE | 2021-07-07 15:06 | PM.IMHP ---
History of Present Illness Date of Service: 07/07/21 Attending physician on admission: Urbano Brandon Chief Complaint: weakness 76 year old women with hx of recent dxc of lung and liver ca. She has not undergone any tx yet. She was having weakness and this morning her son noted that she was not able to ambulate and she wasnt speaking. He called EMS. She has been unwell since her diagnosis as just prior to that she had a fall and was hospitalized at [facility]. She denied chest pain, sob, nausea, vomiting, fever, chill. She lives alone but her son has come from [place] to stay and take care of her. In the ED, Her potassium was 2.9, and her BS went down as low as 10. She was started on D5NS with good effect and all diabetic medications have been stopped. She will be following up with her oncologist regarding her diagnosis of lung cancer but at this time has declined having any diagnostic procedures done. 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 Family History Sister Colon cancer Father Asthma Lung cancer Mother Stroke Brother Colon cancer Surgical History History of esophagogastroduodenoscopy (EGD) History of lumbar laminectomy History of lumpectomy Hx of colonoscopy Social History Alcohol intake: never Patient Tobacco Use Status: Current everyday Tobacco user Tobacco use type: Cigarette Cigarette Packs Per Day: 0.5 Cigarettes Per Day: 10.0 Years Smoked: 55 Smoked in Last 30 Days: Yes Patient Interested in Nicotine Replacement: No Patient Given Instructions on How to Stop Smoking: Yes Date Education Initiated: 07/07/21 Advance Directives: No Advance Directives Information Provided: No service: No Current occupational status: retired Meds Allergies Allergy/AdvReac Type Severity Reaction Status Date / Time lisinopril Allergy Severe TONGUE Verified 04/14/21 15:18 SWELLING Active Medications: Current Medications Dextrose/Sodium Chloride (D5ns) 1,000 mls @ 125 mls/hr IVCONT .Q8H [facility] Last Admin: 07/07/21 13:07 Dose: Not Given Documented by: Dextrose/Sodium Chloride (D51/2ns) 1,000 mls @ 125 mls/hr IVCONT .Q8H [facility] Last Admin: 07/07/21 13:08 Dose: 125 mls/hr Documented by: Pharmacy Consult (Consult Rx Perform Med Rec) 1 each MISCELLANE ONCE PRN PRN Reason: Consult order Home Medications Medication Instructions Recorded Confirmed Last Taken Type albuterol sulfate 90 mcg/actuation 2 puff INHALATION Q6H PRN 12/31/20 07/07/21 Unknown History aerosol inhaler clopidogrel 75 mg tablet (Plavix) 75 mg PO DAILY 12/31/20 07/07/21 03/14/21 History fenofibrate 160 mg tablet 160 mg PO DAILY 12/31/20 07/07/21 03/14/21 History ferrous sulfate 325 mg (65 mg 325 mg PO DAILY 12/31/20 07/07/21 03/14/21 History iron) tablet gabapentin 100 mg capsule 200 mg PO BID 12/31/20 07/07/21 03/14/21 History omeprazole 20 mg capsule,delayed 20 mg PO DAILY 12/31/20 07/07/21 03/14/21 History release rosuvastatin 20 mg tablet (Crestor) 20 mg PO DAILY 12/31/20 07/07/21 03/14/21 History clonidine HCl 0.1 mg tablet 1 tab PO BID 03/15/21 07/07/21 03/14/21 History fluticasone fur. 100 mcg-umeclid 1 puff INHALATION DAILY 03/15/21 07/07/21 03/14/21 History 62.5 mcg-vilant 25 mcg inhalat.powder (Trelegy Ellipta) epinephrine 0.3 mg/0.3 mL 0.3 mg IM Q5M PRN 04/09/21 07/07/21 Unknown History injection, auto-injector amlodipine 10 mg tablet 10 mg PO DAILY 04/14/21 07/07/21 Unknown History Physical Exam Vital Signs and Narrative: Vital Signs: Last Vital Signs Temp 97.7 F 07/07/21 14:38 Pulse 79 07/07/21 14:38 Resp 19 07/07/21 14:38 BP 156/71 H 07/07/21 14:38 Pulse Ox 95 07/07/21 14:38 BMI result Body Mass Index 14.1 Appearing in no acute distress, thin and frail appearing head is normocephalic atraumatic eyes pupils are PERRLA sclera is anicteric mouth throat mucous membranes are intact and moist neck is supple no lymphadenopathy, no JVD noted lung sounds are clear to auscultation heart regular rate rhythm, clear S1, S2 positive bowel sounds, abdomen is soft, nontender neuro patient is alert x3, no focal deficits Results Labs CBC and Chem 7: 07/08/21 06:05 07/08/21 06:05 Labs: Laboratory Results - last 24 hr 07/07/21 07/07/21 07/07/21 08:37 08:37 08:37 MCV 85.7 MCH 26.6 L MCHC 31.1 RDW 16.9 H Plt Count 448 H MPV 9.4 Immature Gran % (Auto) 0.7 H Neut % (Auto) 85.4 H Lymph % (Auto) 4.4 L [place] % (Auto) 8.1 Eos % (Auto) 1.3 Baso % (Auto) 0.1 Lymph # (Auto) 0.6 L [place] # (Auto) 1.2 Eos # (Auto) 0.2 Baso # (Auto) 0.0 Abs Immat Gran (auto) 0.10 H Absolute Neuts (auto) 12.4 H Absolute Nucleated RBC 0.000 Nucleated RBC % (auto) 0.0 PT 14.7 H INR 1.3 H Anion Gap 15 Estim Creat Clear Calc 40.0 Estimated GFR > 60 POC Glucose Random Glucose 106 Calcium 9.7 Magnesium 1.7 Total Bilirubin 0.3 AST 29 ALT 19 Alkaline Phosphatase 125 H D Total Creatine Kinase 18 L Troponin I High Sens Total Protein 6.4 L Albumin 2.9 L D COVID-19 ([facility]KASH) COVID-19 Clin Com 07/07/21 07/07/21 07/07/21 08:38 08:38 11:47 MCV MCH MCHC RDW Plt Count MPV Immature Gran % (Auto) Neut % (Auto) Lymph % (Auto) [place] % (Auto) Eos % (Auto) Baso % (Auto) Lymph # (Auto) [place] # (Auto) Eos # (Auto) Baso # (Auto) Abs Immat Gran (auto) Absolute Neuts (auto) Absolute Nucleated RBC Nucleated RBC % (auto) PT INR Anion Gap Estim Creat Clear Calc Estimated GFR POC Glucose Random Glucose Calcium Magnesium Total Bilirubin AST ALT Alkaline Phosphatase Total Creatine Kinase Troponin I High Sens 28.0 H 27.9 H Total Protein Albumin COVID-19 (AAKASH) Negative COVID-19 Clin Com See Note 07/07/21 07/07/21 07/07/21 12:56 13:16 14:34 MCV MCH MCHC RDW Plt Count MPV Immature Gran % (Auto) Neut % (Auto) Lymph % (Auto) [place] % (Auto) Eos % (Auto) Baso % (Auto) Lymph # (Auto) [place] # (Auto) Eos # (Auto) Baso # (Auto) Abs Immat Gran (auto) Absolute Neuts (auto) Absolute Nucleated RBC Nucleated RBC % (auto) PT INR Anion Gap Estim Creat Clear Calc Estimated GFR POC Glucose 10 L* 392 H* 242 H Random Glucose Calcium Magnesium Total Bilirubin AST ALT Alkaline Phosphatase Total Creatine Kinase Troponin I High Sens Total Protein Albumin COVID-19 (AAKASH) COVID-19 Clin Com Imaging Radiologist's Impressions: Impressions Chest X-Ray 07/07/21 09:00 IMPRESSION: Complete opacification of the left lung with leftward mediastinal shift which could indicate postobstructive atelectasis and volume loss. Chest CT 07/07/21 10:07 IMPRESSION: 1. [id number] left-sided pleural effusion with complete collapse of the left lung. Abrupt cutoff of the left mainstem bronchus which could indicate an obstructing lesion. Evaluation is somewhat limited without contrast, and bronchoscopy could help further evaluate in the appropriate clinical setting. 2. Trace right-sided basilar pleural thickening. No right-sided airspace consolidation. Mild emphysematous changes. 3. Leftward mediastinal shift with mild cardiomegaly and a trace pericardial effusion. Fleischner guidelines were followed. Head CT 07/07/21 10:07 IMPRESSION: No intracranial hemorrhage or mass effect. Generalized atrophy and chronic small vessel white matter ischemic changes. Assessment and Plan (1) Hypoglycemia: Status: Acute Plan 76-year-old woman placed on observation for hypoglycemia and hypokalemia with history of lung cancer with liver Mets. Follows with Oncology at [facility] Collapsed lung Chest CT showing complete collapse of the left lung with cutoff of the left mainstem bronchus likely indicating obstructive lesion in light of patient's lung cancer diagnosis The patient's son and the patient herself have discussed this and are likely leaning towards hospice options and have declined a bronchoscopy at this point therefore will not consult pulmonology She is not hypoxic or in any way having respiratory discomfort Supportive care Hypoglycemia. Blood sugar went as low as 10 in the ED Likely related to medications including glipizide and metformin Also likely some component of dehydration Corrected at this point Will check blood sugar every 4 hours Sliding scale ADA diet Hypokalemia Repleted Follow BMP Coagulopathy INR 1.3 Secondary to liver carcinoma No bleeding History of stage IV lung cancer Recent diagnosis about 1 month ago, follows Oncology at [facility] Has an appointment with oncologist this week to discuss options more likely palliative Hypertension Continue amlodipine and clonidine Iron deficiency anemia Continue iron supplementation History of CAD/ PaD Continue plavix and statin History of COPD. No exacerbation Continue butyrate as needed DVT prophylaxis with heparin Attending Dr. Taylor Full code Quality Stroke Does the patient have a stroke diagnosis?: No VTE Prior VTE?: No VTE Risk Level:: Medical - moderate - high VTE Device Contraindication: Treatment Not Indicated VTE Drug Contraindication: N/A - Med Ordered
[2021-07-07 15:40] LABS: Glucose, Whole Blood 208 mg/dL (60-115)
[2021-07-07] MEDS: Heparin Sodium,Porcine 5,000 UNIT/ML VIAL 5000 UNIT SUBCUT (16:23)
[2021-07-07] MEDS: Dextrose 5 % and 0.9 % NaCl 1,000 ML 100 ML IVCONT (16:25)
[2021-07-07 16:42] VITALS: BP 164/78; PULSE 82; RESP 20; O2SAT 96
[2021-07-07 16:42] LABS: Glucose, Whole Blood 170 mg/dL (60-115)
[2021-07-07 17:39] LABS: Glucose, Whole Blood 145 mg/dL (60-115)
[2021-07-07 18:34] LABS: Glucose, Whole Blood 159 mg/dL (60-115)
[2021-07-07 21:18] VITALS: BP 190/91; PULSE 86; RESP 18; TEMP 37; O2SAT 96
[2021-07-07 21:21] LABS: Glucose, Whole Blood 120 mg/dL (60-115)
[2021-07-07] MEDS: cloNIDine HCL 0.1 MG TABLET PO (22:57)
[2021-07-07] MEDS: Gabapentin 100 MG CAPSULE 200 MG PO (22:57)
[2021-07-07] MEDS: 0.9 % Sodium Chloride Flush 3 ML SYRINGE IVFLUSH (22:59)
[2021-07-07 23:19] VITALS: BMI 16.5
[2021-07-07 23:25] VITALS: BP 176/93; PULSE 85; RESP 18; TEMP 36.9; O2SAT 97
[2021-07-07 23:49] LABS: Glucose, Whole Blood 65 mg/dL (60-115)
[2021-07-08 00:31] LABS: Glucose, Whole Blood 91 mg/dL (60-115)
[2021-07-08 03:43] VITALS: BP 159/84; PULSE 80; RESP 20; TEMP 36.9; O2SAT 94
[2021-07-08 03:53] LABS: Glucose, Whole Blood 85 mg/dL (60-115)
[2021-07-08 06:30] LABS: Glucose, Whole Blood 87 mg/dL (60-115)
[2021-07-08 06:31] LABS: MANUAL DIFF FLAG NO
[2021-07-08 06:35] LABS: Basophils Percent Auto 0.2 % (0-2); Eosinophils Absolute Auto 1.5 X10*3/uL (0.0-0.4); Eosinophils Percent Auto 11.4 % (0-4); Hematocrit 28.4 % (37.0-47.0); Hemoglobin 8.8 g/dl (12.0-16.0); Imm Gran Abs Auto 0.04 X10*3/uL (0.00-0.03); Imm Gran Pct Auto 0.3 % (0.0-0.4); Lymphocytes Percent Auto 7.6 % (20-40); Mean Corpuscular Hemoglobin 27.1 pg (27.0-33.0); Mean Corpuscular Volume 87.4 fL (80.0-98.0); Mean Platelet Volume 9.8 fL (9.4-12.3); Monocytes Absolute Auto 1.3 X10*3/uL (0.1-1.2); Monocytes Percent Auto 9.8 % (2-11); Neutrophils Absolute Auto 9.1 x10*3/uL (2.0-8.3); Neutrophils Percent Auto 70.7 % (45-73); Platelet Count 416 X10*3/uL (160-400); Red Blood Count 3.25 X10*6/uL (4.20-5.50); Red Cell Distribution Width 16.8 % (11.0-16.0); White Blood Count 12.9 X10*3/uL (4.8-10.8)
[2021-07-08] MEDS: Dextrose 5 % and 0.9 % NaCl 1,000 ML 100 ML IVCONT (06:36)
[2021-07-08 07:24] LABS: Anion Gap 11 (12-20); Blood Urea Nitrogen 8 mg/dL (9-16); Calcium 9.1 mg/dL (8.4-10.2); Carbon Dioxide 25 mmol/L (22-29); Chloride 108 mmol/L (96-108); Creatinine Clr Calc Pharmacy 53.4; Estimated Glomerular Filt Rate > 60; Glucose Random 79 mg/dL (60-115); Potassium 3.6 mmol/L (3.3-5.1); Sodium 140 mmol/L (135-145)
[2021-07-08 07:25] LABS: Magnesium 1.7 mg/dL (1.6-2.6)
[2021-07-08 07:54] VITALS: BP 150/68; PULSE 78; RESP 18; TEMP 36.6; O2SAT 98
[2021-07-08 08:02] LABS: Glucose, Whole Blood 101 mg/dL (60-115)
--- NOTE | 2021-07-08 09:01 | MHC.CM.PN ---
CM briefly met with Patient at bedside but initially she was sleeping soundly so CM spoke with Son/HCP/Dallin @ [phone] and addressed DINH with him (original left at bedside per Son's request, and a copy placed on the chart). Patient is a active with [facility] and home with resumption of services is the goal (Hospice may be considered at some point); CM has initiated and will follow for dc planning. Patient typically lives alone in her [facility] but her son and [id number] (A Physical Therapist) is staying with her from [place]. Patient typically uses a walker and her PCP is DR. Brittany Franks. Patient has received Pfizer/Cov[employer] vax X3.
[2021-07-08] MEDS: Clopidogrel Bisulfate 75 MG TABLET PO (10:52)
[2021-07-08] MEDS: Gabapentin 100 MG CAPSULE 200 MG PO (10:52)
[2021-07-08] MEDS: amLODIPine Besylate 10 MG TABLET PO (10:52)
[2021-07-08] MEDS: Fenofibrate 160 MG TABLET PO (10:52)
[2021-07-08] MEDS: Omeprazole 20 MG CAPSULE.DR PO (10:52)
[2021-07-08] MEDS: cloNIDine HCL 0.1 MG TABLET PO (10:52)
[2021-07-08] MEDS: Ferrous Sulfate 324 MG TABLET.DR PO (10:52)
[2021-07-08] MEDS: Atorvastatin Calcium 80 MG TABLET PO (10:52)
--- NOTE | 2021-07-08 10:58 | P.DS_ITS ---
DS: Providers Provider Date of Service: 07/08/21 Date of admission: 07/07/21 15:12 Primary care physician: Brittany Franks MD Attending physician on discharge: Steven Corley Discharging clinician: Loretta Ochoa DS: Diagnosis Discharge Diagnosis (1) Hypoglycemia: Status: Acute DS: Summary Hospital Course Hospital Course: 76 year old women with hx of recent dxc of lung and liver ca. She has not undergone any tx yet. She was having weakness and this morning her son noted that she was not able to ambulate and she wasnt speaking. He called EMS. She has been unwell since her diagnosis as just prior to that she had a fall and was hospitalized at [facility]. She denied chest pain, sob, nausea, vomiting, fever, chill. She lives alone but her son has come from [place] to stay and take care of her.? In the ED, Her potassium was 2.9, and her BS went down as low as 10. She was started on D5NS with good effect and all diabetic medications have been stopped.? She will be following up with her oncologist regarding her diagnosis of lung cancer but at this time has declined having any diagnostic procedures done. Collapsed lung Chest CT showing complete collapse of the left lung with cutoff of the left mainstem bronchus likely indicating obstructive lesion in light of patient's lung cancer diagnosis The patient's son and the patient herself have discussed this and are likely leaning towards hospice options and have declined a bronchoscopy at this point therefore will not consult pulmonology She is not hypoxic or in any way having respiratory discomfort Supportive care Hypoglycemia. Blood sugar went as low as 10 in the ED Likely related to medications including glipizide and metformin Also likely some component of dehydration Corrected at this point all diabetic medications stopped and she should follow with her pcp prior to resumption Hypokalemia. resolved Repleted Coagulopathy INR 1.3 Secondary to liver carcinoma No bleeding History of stage IV lung cancer Recent diagnosis about 1 month ago, follows Oncology at [facility] Has an appointment with oncologist this week to discuss options more likely palliative Hypertension Continue amlodipine and clonidine Iron deficiency anemia Continue iron supplementation History of CAD/ PaD Continue plavix and statin History of COPD.? No exacerbation Continue butyrate as needed Time Spent with Patient Time attestation: Total time spent providing and/or coordinating discharge services: Discharge coordination time: Greater than 30 minutes Quality: Safe Use of Opioids Does Pt have an Active Cancer Diagnosis on the Problem List?: No Quality: Stroke Does the patient have a stroke diagnosis?: No Physical Exam Vital Signs: Vital Signs: Last Vital Signs Temp 97.8 F 07/08/21 07:54 Pulse 78 07/08/21 07:54 Resp 18 07/08/21 07:54 BP 150/68 H 07/08/21 07:54 Pulse Ox 98 07/08/21 07:54 BMI result Body Mass Index 16.5 Appearing in no acute distress head is normocephalic atraumatic eyes pupils are PERRLA sclera is anicteric mouth throat mucous membranes are intact and moist neck is supple no lymphadenopathy, no JVD noted lung sounds are clear to auscultation heart regular rate rhythm, clear S1, S2 positive bowel sounds, abdomen is soft, nontender neuro patient is alert x3, no focal deficits DS: Data Data Completed and Pending Labs on day of discharge: Laboratory Results - last 24 hr 07/07/21 07/07/21 07/07/21 11:47 12:56 13:16 WBC RBC Hgb Hct MCV MCH MCHC RDW Plt Count MPV Immature Gran % (Auto) Neut % (Auto) Lymph % (Auto) [place] % (Auto) Eos % (Auto) Baso % (Auto) Lymph # (Auto) [place] # (Auto) Eos # (Auto) Baso # (Auto) Abs Immat Gran (auto) Absolute Neuts (auto) Absolute Nucleated RBC Nucleated RBC % (auto) Sodium Potassium Chloride Carbon Dioxide Anion Gap BUN Creatinine Estim Creat Clear Calc Estimated GFR POC Glucose 10 L* 392 H* Random Glucose Calcium Magnesium Troponin I High Sens 27.9 H 07/07/21 07/07/21 07/07/21 14:34 15:30 16:04 WBC RBC Hgb Hct MCV MCH MCHC RDW Plt Count MPV Immature Gran % (Auto) Neut % (Auto) Lymph % (Auto) [place] % (Auto) Eos % (Auto) Baso % (Auto) Lymph # (Auto) [place] # (Auto) Eos # (Auto) Baso # (Auto) Abs Immat Gran (auto) Absolute Neuts (auto) Absolute Nucleated RBC Nucleated RBC % (auto) Sodium Potassium Chloride Carbon Dioxide Anion Gap BUN Creatinine Estim Creat Clear Calc Estimated GFR POC Glucose 242 H 208 H 170 H Random Glucose Calcium Magnesium Troponin I High Sens 07/07/21 07/07/21 07/07/21 17:35 18:30 21:16 WBC RBC Hgb Hct MCV MCH MCHC RDW Plt Count MPV Immature Gran % (Auto) Neut % (Auto) Lymph % (Auto) [place] % (Auto) Eos % (Auto) Baso % (Auto) Lymph # (Auto) [place] # (Auto) Eos # (Auto) Baso # (Auto) Abs Immat Gran (auto) Absolute Neuts (auto) Absolute Nucleated RBC Nucleated RBC % (auto) Sodium Potassium Chloride Carbon Dioxide Anion Gap BUN Creatinine Estim Creat Clear Calc Estimated GFR POC Glucose 145 H 159 H 120 H Random Glucose Calcium Magnesium Troponin I High Sens 07/07/21 07/08/21 07/08/21 23:44 00:28 03:48 WBC RBC Hgb Hct MCV MCH MCHC RDW Plt Count MPV Immature Gran % (Auto) Neut % (Auto) Lymph % (Auto) [place] % (Auto) Eos % (Auto) Baso % (Auto) Lymph # (Auto) [place] # (Auto) Eos # (Auto) Baso # (Auto) Abs Immat Gran (auto) Absolute Neuts (auto) Absolute Nucleated RBC Nucleated RBC % (auto) Sodium Potassium Chloride Carbon Dioxide Anion Gap BUN Creatinine Estim Creat Clear Calc Estimated GFR POC Glucose 65 91 85 Random Glucose Calcium Magnesium Troponin I High Sens 07/08/21 07/08/21 07/08/21 06:05 06:05 06:05 WBC 12.9 H RBC 3.25 L Hgb 8.8 L Hct 28.4 L MCV 87.4 MCH 27.1 MCHC 31.0 RDW 16.8 H Plt Count 416 H MPV 9.8 Immature Gran % (Auto) 0.3 Neut % (Auto) 70.7 Lymph % (Auto) 7.6 L [place] % (Auto) 9.8 Eos % (Auto) 11.4 H Baso % (Auto) 0.2 Lymph # (Auto) 1.0 L [place] # (Auto) 1.3 H Eos # (Auto) 1.5 H Baso # (Auto) 0.0 Abs Immat Gran (auto) 0.04 H Absolute Neuts (auto) 9.1 H Absolute Nucleated RBC 0.000 Nucleated RBC % (auto) 0.0 Sodium 140 Potassium 3.6 D Chloride 108 Carbon Dioxide 25 Anion Gap 11 L BUN 8 L Creatinine 0.58 Estim Creat Clear Calc 53.4 Estimated GFR > 60 POC Glucose Random Glucose 79 Calcium 9.1 D Magnesium 1.7 Troponin I High Sens 07/08/21 07/08/21 06:22 07:58 WBC RBC Hgb Hct MCV MCH MCHC RDW Plt Count MPV Immature Gran % (Auto) Neut % (Auto) Lymph % (Auto) [place] % (Auto) Eos % (Auto) Baso % (Auto) Lymph # (Auto) [place] # (Auto) Eos # (Auto) Baso # (Auto) Abs Immat Gran (auto) Absolute Neuts (auto) Absolute Nucleated RBC Nucleated RBC % (auto) Sodium Potassium Chloride Carbon Dioxide Anion Gap BUN Creatinine Estim Creat Clear Calc Estimated GFR POC Glucose 87 101 Random Glucose Calcium Magnesium Troponin I High Sens Discharge Plan Discharge Anticipated Discharge Date/Time: 07/08/21 10:51 Patient Disposition: Home, Self-Care Discharge Diagnosis: Collapsed lung Hypoglycemia Hypokalemia Referrals: Brittany Franks MD [Primary Care Provider] - 1 day (Patient needs repeat blood work done and her options for her stage IV metastatic lung cancer/left lung collapse) Discharge Medications: Continued clonidine HCl 0.1 mg tablet 1 tab PO BID 0RF Trelegy Ellipta 100-62.5-25 mcg blister with device 1 puff inhalation DAILY 0RF amlodipine 10 mg tablet 10 mg PO DAILY 0RF omeprazole 20 mg capsule,delayed release(DR/EC) 20 mg PO DAILY 0RF gabapentin 100 mg capsule 200 mg PO BID 0RF Label Comments: PRESCRIBED TID, PT TAKES BID albuterol sulfate 90 mcg/actuation HFA aerosol inhaler 2 puff inhalation Q6H PRN (Reason: Shortness Of Breath) 0RF clopidogrel [Plavix] 75 mg tablet 75 mg PO DAILY 0RF fenofibrate 160 mg tablet 160 mg PO DAILY 0RF rosuvastatin [Crestor] 20 mg tablet 20 mg PO DAILY 0RF ferrous sulfate 325 mg (65 mg iron) tablet 325 mg PO DAILY 0RF epinephrine 0.3 mg/0.3 mL auto-injector 0.3 mg IM Q5M PRN (Reason: Anaphylaxis) 0RF Discontinued glipizide 5 mg tablet extended release 24 hr 1 tab PO DAILY 0RF Januvia 100 mg tablet 100 mg PO DAILY 0RF metformin 500 mg tablet 1,000 mg PO BID 0RF Discharge Orders: Discharge Order (Routine); Ordered 07/08/21 Ordered By: Loretta Ochoa Diet: advance to usual diet Activity on Discharge: As tolerated Stand Alone Forms: Patient Portal Discharge page Print Language: [place] Care Plan Goals: continue to check blood sugars regularly Health Concerns: Collapsed lung Hypoglycemia Hypokalemia Plan of Treatment: Follow-up with your primary care provider and oncologist All of your diabetic medications have been stopped and you should follow-up with her primary care provider prior to resuming them Assessment: See discharge summary Patient Instructions: Hypokalemia (ED), Pleural Effusion (ED), Pericardial Effusion (ED)
--- NOTE | 2021-07-08 11:05 | MHC.CM.PN ---
Patient has been medically cleared for dc to home today, self care.
--- NOTE | 2021-07-08 11:10 | PC.NURSE ---
pt POC maintained. per md pt to be discharged today. son will take pt home, both were spoken to by MD. discharge orders in. IV was d/c'ed. tele monitor off. discharge paper given to pt, pt was educated. safety and fall precautions in place. call vazquez within reach. pt repo'd q2.
== END 2021-07-08 11:30 | disposition home or self-care (01) ==
LOC: HO.ED 13:12 → HO.EDOVER 15:28 → HO.IMC 19:34
PROVIDERS: Physician Assistant Medical; Admitting Provider Nurse Practitioner Acute Care; Emergency Provider Emergency Medicine; PCP Internal Medicine; Visit Provider Nurse Practitioner Acute Care
DX: E16.2 Hypoglycemia, unspecified (principal); E87.6 Hypokalemia; R53.1 Weakness; J98.19 Other pulmonary collapse; J91.8 Pleural effusion in other conditions classified elsewhere; J92.9 Pleural plaque without asbestos; C34.90 Malignant neoplasm of unspecified part of unspecified bronchus or lung; C78.7 Secondary malignant neoplasm of liver and intrahepatic bile duct; D04.60 Carcinoma in situ of skin of unspecified upper limb, including shoulder; D50.9 Iron deficiency anemia, unspecified; D68.4 Acquired coagulation factor deficiency; E11.9 Type 2 diabetes mellitus without complications; I10 Essential (primary) hypertension; E78.00 Pure hypercholesterolemia, unspecified; J44.9 Chronic obstructive pulmonary disease, unspecified; I49.3 Ventricular premature depolarization; N28.1 Cyst of kidney, acquired; E86.0 Dehydration; R77.8 Other specified abnormalities of plasma proteins; F17.210 Nicotine dependence, cigarettes, uncomplicated; Z20.822 Contact with and (suspected) exposure to COVID-19; Z86.79 Personal history of other diseases of the circulatory system; Z88.8 Allergy status to other drugs, medicaments and biological substances; Z79.4 Long term (current) use of insulin; Z79.899 Other long term (current) drug therapy
CPT/HCPCS: 36415; 70450; 71045; 71250; 80048; 80053; 82550; 82947; 83735; 84484; 85025; 85610; 87635; 93005; 96361; 96365; 96366; 96367; 96372; 96375; 96376; 99219; 99283; 99291